=== PATIENT | male | born 1960 | race Caucasian/White ===

== ENCOUNTER 2019-03-29 13:08 | Inpatient (IN) | payer SELFPAY ==
[~2019-03-29 13:08] MED LIST: Iopamidol-370 76% 500 ML 1 ML ONE
--- NOTE | 2019-03-29 15:05 | CT ---
EXAM: CT Pelvis W Con PROVIDED CLINICAL HISTORY: Perineal abscess COMPARISON: None FINDINGS: There is reticulation of the subcutaneous adipose layer, subcutaneous gas and skin thickening involvi ng the left perineum and left inferior gluteal region. There is no evidence for an organized fluid collection to suggest abscess. The intrapelvic contents appear unremarkable. No evidence for regional lymph node enlargement. The os seous structures demonstrate no concerning lytic or blastic lesions. IMPRESSION: Left perineal and gluteal cellulitis.
[2019-03-29 15:54] LABS: Acetaminophen Less than 6.0 mcg/mL (10.0-30.0); Alcohol Less than 10 mg/dL (Less than 10); Salicylate Less than 8.0 mg/dL (15.0-30.0)
[2019-03-29] MEDS ORDERED: Acetaminophen 325 MG TAB PO PRN (15:59)
[2019-03-29] MEDS ORDERED: Ondansetron PF 4 MG/2 ML Vial IVP PRN (15:59)
[2019-03-29] MEDS ORDERED: HYDROcodone/Acetaminophen 5/325 mg Tablet PO PRN (15:59)
[2019-03-29] MEDS ORDERED: HYDROcodone/Acetaminophen 10/325 mg Tablet PO PRN (15:59)
[2019-03-29] MEDS ORDERED: Ondansetron ODT 4 MG TAB PO PRN (15:59)
[2019-03-29] MEDS ORDERED: Potassium Chloride 20 MEQ TAB PO SCH (16:00)
[2019-03-29] MEDS ORDERED: Potassium Chloride 20 MEQ TAB ONE (16:11)
[2019-03-29 16:33] LABS: Phosphorus 2.7 mg/dL (2.3-4.7)
[2019-03-29 17:06] LABS: Anion Gap 20 mmol/L (10-20); BUN (Urea Nitrogen) 6 mg/dL (8.4-25.7); Calc. Creatinine Clearance 0 mL/min (70-130); Calcium 7.4 mg/dL (7.8-10.44); Carbon Dioxide 17 mmol/L (22-29); Chloride 90 mmol/L (98-107); Estimated GFR-MDRD Greater than 90; Glucose 69 mg/dL (70-105); Potassium 3.7 mmol/L (3.5-5.1); Sodium 123 mmol/L (136-145)
--- NOTE | 2019-03-29 17:14 | HP ---
PRIMARY CARE PHYSICIAN: None. CHIEF COMPLAINT: Rectal nodule and drainage. HISTORY OF PRESENT ILLNESS: A 58-year-old male with chronic alcohol abuse, admitted on transfer from [facility] for evaluation and treatment of left perirectal abscess and drainage. The patient reportedly developed a perirectal discomfort about 2 weeks ago, which he thought was hemorrhoid, hence brought some anti-hemorrhoid medication and has been applying it, but in the last few days, he noticed some nodule with some drainage. He reportedly went to [facility] earlier today where he was found to have some induration with drainage and erythema on the left perianal area. The patient was treated with antibiotics and transferred over here for further evaluation and treatment. Evaluation also showed hyponatremia with sodium of 122, as well as hypokalemia. The patient denied mental status change, dizziness, chest pain, nausea, vomiting, abdominal pain, leg swelling, change in bowel habit, dysuria, hematuria, hematochezia, melena, hematemesis, headache, and focal weakness. He however admitted to hiccups which have been getting frequent in the last 1 week as well as frequent falls in the last 1 week. The patient at baseline has gait instability which is associated with falls, which reportedly has gotten worse in the last 1 week. The patient is a chronic alcoholic, drinking about two 6 packs every day, but reportedly slowed down in the last 1 to 2 weeks to one 6-pack every day with last drink being about 9 p.m. yesterday. He denied weight loss. PAST MEDICAL HISTORY: 1. Anemia, status post blood transfusion. 2. Hemorrhoids. PAST SURGICAL HISTORY: None. FAMILY HISTORY: Significant for diabetes in mother. SOCIAL HISTORY: The patient is a chronic alcoholic, drinking about 2 packs daily for more than 40 years. Denied smoking, but admitted to tobacco chewing. Denied recreational drug use. ALLERGIES: NO KNOWN DRUG ALLERGIES REPORTED. HOME MEDICATIONS: None. REVIEW OF SYSTEMS: 12-point review of systems performed was negative other than pertinent positives and negatives included in the History of Present Illness. PHYSICAL EXAMINATION: VITAL SIGNS: Temperature 98.5 pulse 82, respiratory rate 17, SpO2 100% on room air, and blood pressure is 125/86. GENERAL: Disheveled male in no distress. Afebrile. Anicteric. Acyanotic. HEENT: Normocephalic, atraumatic. Oral mucosa is moist. NECK: Supple with no JVD. CARDIOVASCULAR: Regular rhythm and rate with normal heart sounds 1 and 2. RESPIRATORY: Fair air entry bilaterally with no obvious crackle or rhonchi or use of accessory muscles. GI: Flat, soft, nontender, nondistended with normal bowel sounds. UROGENITAL: Left perianal nodule with some dark discoloration as well as induration, marked tenderness and erythema. Anal skin tag also noted. Scrotum and penis are unremarkable. EXTREMITIES: Grossly normal looking with no edema or erythema. Right knee and leg abrasions noted. Forearm bruises and ecchymosis at various stages of resolution also noted. SENIOR PROJECT MANAGER ENGINEERING: Conscious, alert, oriented x3 with appropriate mental status. Cranial nerves 2 through 12 are grossly intact. The patient moves all extremities. There is no overt tremor of the hands appreciated. DIAGNOSTIC DATA: CBC showed WBC count of 9.2, hemoglobin of 14.1, MCV of 96.0, and platelets of 184. Coagulation panel showed PT 14.3, INR 1.1, and PTT 28.6. CMP showed sodium 122, potassium 3.2, chloride 84, CO2 of 23, BUN 7, anion gap 18, creatinine 0.61, glucose 76, calcium 8.8, total bilirubin 2.2, AST 80, ALT 59, alkaline phosphatase 65, total protein 6.7, albumin 3.2, globulin 3.5. Ammonia is less than 12. Initial troponin is 0.010. BNP is 31.7. Chest x-ray showed normal-sized heart and lungs with no infiltrate or effusion. Old healed rib fractures bilaterally were noted. The lungs are mildly hyperexpanded, but there was no acute thoracic finding. CT scan of the pelvis with contrast showed reticulation of the subcutaneous adipose layer, subcutaneous gas, and skin thickening involving the left perineum and left inferior gluteal region. There is no evidence of an organized fluid collection to suggest abscess. This is thought to be consistent with left perineal and gluteal cellulitis. ASSESSMENT: 1. Left perianal and perineal abscess with cellulitis, concerning for early Skye gangrene. 2. Chronic alcohol abuse with imminent withdrawal symptoms. 3. Hyponatremia: Most likely due to poor solute intake and chronic alcohol abuse. 4. Hypokalemia: Due to poor oral intake. 5. Abnormal liver enzymes: Most likely due to alcohol liver disease. 6. 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 Wernicke-Korsakoff syndrome seems more likely. 7. Physical deconditioning with frequent falls. PLAN: 1. We will start the patient on broad-spectrum antibiotic therapy. 2. We will replete serum potassium with potassium chloride. 3. Nutritional rehabilitation will be commenced. 4. We will get urine osmolality as well as serum osmolality. We will also get urine electrolytes and urinalysis. We will also get serum phosphorus and magnesium and replete as needed. 5. We will consult General Surgery as well as Nephrology. 6. We will start alcohol withdrawal protocol. 7. Fall precaution will be commenced. 8. We will also consult PT and OT. 9. Code status, full code. Mother is the surrogate decision maker. Further treatment to follow depending on hospital course. Job ID: [id number]
[2019-03-29 17:51] LABS: Medtox Reader # READER 1
[2019-03-29 17:52] LABS: Amphetamine Not Detected (NotDetected); Barbiturates Screen Not Detected (NotDetected); Benzodiazepine Screen Not Detected (NotDetected); Cocaine Metabolite Screen Not Detected (NotDetected); Methadone Not Detected (NotDetected); Methamphetamine Not Detected (NotDetected); Opiate Screen Not Detected (NotDetected); Oxycodone Screen Not Detected (NotDetected); Phencyclidine (PCP) Not Detected (NotDetected); THC/Cannabinoid Screen Not Detected (NotDetected); Tricyclic Screen Not Detected (NotDetected)
[2019-03-29 17:53] LABS: Medtox Control Line Valid? VALID (VALID)
[2019-03-29 19:14] VITALS: BMI 21.4
[2019-03-29] MEDS: Nicotine 21 MG PATCH TD SCH (22:29)
[2019-03-29] MEDS: Piperacillin/Tazobactam 3.375 GM in Sodium Chloride 0.9% 100 ML IVPB SCH (22:30)
--- NOTE | 2019-03-29 23:16 | CON ---
DATE OF CONSULTATION: 03/29/2019 GENERAL SURGEON: Dr. eVlasquez. HISTORY OF PRESENT ILLNESS: The patient is a 58-year-old male who presented to the emergency department complaining of perirectal pain and swelling. He was admitted to the hospital due to left-sided perirectal abscess, hyponatremia, and hypokalemia. At the time my evaluation, the patient reported his perirectal tenderness started about 10 days ago. He denies fevers or chills. Reports he is still having regular bowel movements and voiding without difficulties. He is afebrile and hemodynamically stable at the time of my evaluation. He is not tachycardic. Surgery was asked to see the patient for possible surgical intervention. The patient denies output from the area. REVIEW OF SYSTEMS: All additional 10-point review of systems is negative except that indicated above. MEDICATIONS: None. SURGICAL HISTORY: None. SOCIAL HISTORY: The patient is a daily alcohol drinker for the past 30 years. He drinks about 1-2 six packs of beer a day. Denies drug use. He does chew tobacco and lives alone. MEDICATIONS: None. ALLERGIES: NO KNOWN DRUG ALLERGIES. PHYSICAL EXAMINATION: VITAL SIGNS: Temperature 98.9, pulse 85, respirations 18, oxygen saturation 96 % on room air, blood pressure 129/76. GENERAL: Well-appearing middle-aged male, lying in bed with no signs of acute distress. PULMONARY: Equal chest rise and fall. Clear breath sounds bilaterally. No signs of acute respiratory distress. CARDIAC: Regular rate and rhythm. No murmurs, gallops, or rubs. GI: Abdomen soft, nontender, and nondistended. EXTREMITIES: 2+ pulses in all extremities. Gross motor and sensation are intact. No significant swelling noted. NEURO: GCS is 15. Pupils equal, round, and reactive to light bilaterally. : The patient does have a perirectal abscess on the left that is open and draining. He does also have tenderness and swelling over the left gluteal cleft and perineum. There are no other signs of abscess. The patient reports the area is very tender. LABORATORY FINDINGS: White count 9.2, hemoglobin 14.1, hematocrit 41.1, platelets 184. Sodium 123, potassium 3.7, chloride 90, bicarb 17, BUN 6, creatinine 0.58, glucose 96, magnesium 1.7, phosphorus 2.7. Urine tox and plasma alcohol are negative. DIAGNOSTIC FINDINGS: CT of the pelvis demonstrates left perineal and gluteal cellulitis. ASSESSMENT: 1. Left-sided perirectal abscess with surrounding cellulitis and perineal cellulitis. 2. Hyponatremia, improving. 3. History of alcohol abuse. PLAN: The patient's abscess is currently draining. He is not septic appearing. There is no surgical indication at this time. We will continue to allow that area to drain and keep it clean. He will receive sitz baths b.i.d. as well as IV Zosyn. Medical management per Primary Team for electrolyte abnormalities. Surgery will re-evaluate the patient to determine further surgical indication over the next couple of days. If there is any change in the patient's condition or new concerns, please contact the Trauma Team for Dr. Velasquez. This patient was seen and examined by Dr. Velasquez and myself this evening. Job ID: [id number] [facility]
[2019-03-30 04:02] LABS: Bacteria/HPF None Seen HPF (None Seen); Bilirubin Negative (Negative); Blood, Urine Negative (Negative); Clarity Clear (Clear); Glucose, Urine (Dipstick) Normal (Negative); Leukocyte Negative Leu/uL (Negative); Nitrite Negative (Negative); Protein, Urine (Dipstick) Negative (Neg-Trace); RBC/HPF 0-3 HPF (0-3); Squamous Epithelial None Seen HPF (0-3); Urobilinogen 6 mg/dL (Less than 2); WBC/HPF None Seen HPF (0-3)
[2019-03-30 04:13] LABS: Urine Culture Reflex No No
[2019-03-30] MEDS: Piperacillin/Tazobactam 3.375 GM in Sodium Chloride 0.9% 100 ML IVPB SCH ×4 (04:28→21:27)
[2019-03-30 05:18] LABS: ALT (SGPT) 56 U/L (8-55); AST (SGOT) 78 U/L (5-34); Albumin 2.6 g/dL (3.5-5.0); Alkaline Phosphatase 63 U/L (40-110); Anion Gap 14 mmol/L (10-20); BUN (Urea Nitrogen) 6 mg/dL (8.4-25.7); Band 6 % (5-11); Bilirubin, Total 1.8 mg/dL (0.2-1.2); Calc. Creatinine Clearance 138 mL/min (70-130); Calcium 7.8 mg/dL (7.8-10.44); Carbon Dioxide 22 mmol/L (22-29); Chloride 92 mmol/L (98-107); Estimated GFR-MDRD Greater than 90; Globulin 2.9 g/dL (2.4-3.5); Glucose 76 mg/dL (70-105); Hemoglobin 12.8 g/dL (14.0-18.0); Lymphocytes 11 % (21-51); MDiff Complete? YES; Mean Corpuscular HGB CONC 34.2 g/dL (32.0-36.0); Mean Corpuscular Hemoglobin 33.3 pg (27.0-31.0); Mean Corpuscular Volume 97.3 fL (78.0-98.0); Mean Platelet Volume 7.3 fL (7.4-10.4); Monocytes 8 % (0-10); Neutrophil 75 % (42-75); Platelet Count 171 thou/uL (130-400); Potassium 3.4 mmol/L (3.5-5.1); Protein, Total 5.5 g/dL (6.0-8.3); RBC Distribution Width 11.2 % (11.5-14.5); Red Blood Cell (RBC) Count 3.84 mill/uL (4.70-6.10); Sodium 125 mmol/L (136-145); White Blood Cell (WBC) Count 6.7 thou/uL (4.8-10.8)
[2019-03-30] MEDS: Potassium Chloride 20 MEQ TAB PO SCH ×2 (08:58→13:27)
[2019-03-30] MEDS ORDERED: FLU VACC QS2019-20(6MOS UP)/PF 60 MCG/0.5 ML SYRINGE IM ONE (09:00)
[2019-03-30] MEDS: Sodium Chloride 0.9% 1,000 ML IV SCH ×2 (09:44→16:45)
--- NOTE | 2019-03-30 10:16 | PDOC.HOSPP ---
- Subjective Encounter Date: 03/30/19 Encounter Time: 12:00 Subjective: Pain to left of anus improving, no other complaints. No events overnight. - Objective Vital Signs & Weight: Vital Signs (12 hours) Temp Pulse Resp BP BP Pulse Ox 03/30/19 07:49 98.1 F 82 16 116/78 116/78 99 03/30/19 04:00 123/79 03/30/19 03:54 98.3 F 82 16 123/79 98 03/30/19 00:00 130/81 Weight Weight 149 lb 9.6 oz I&O: 03/29/19 03/30/19 03/31/19 06:59 06:59 06:59 Intake Total 800 Output Total 1600 Balance -800 Result Diagrams: 03/30/19 04:06 03/30/19 04:06 Hospitalist ROS - Review of Systems Constitutional: denies: fever, chills Respiratory: denies: cough, shortness of breath Cardiovascular: denies: chest pain, palpitations Gastrointestinal: denies: nausea, vomiting, abdominal pain - Medication Medications: Active Medications Generic Name Dose Route Start Last Admin Trade Name Freq PRN Reason Stop Dose Admin Piperacillin Sod/Tazobactam 100 mls @ 200 mls/hr 03/29/19 21:00 03/30/19 08: 58 Sod 3.375 gm/ Sodium Chloride IVPB 100 mls 0300,0900,1500,2100 HILDA Administration Sodium Chloride 1,000 mls @ 120 mls/hr 03/30/19 09:30 03/30/19 09:44 Normal Saline 0.9% IV 1,000 mls .Q8H20M HILDA Administration Nicotine 21 mg 03/29/19 21:00 03/29/19 22:29 Nicoderm Patch TD Not Given Q24HR HILDA Pantoprazole Sodium 40 mg 03/30/19 09:00 03/30/19 08:58 Protonix PO 40 mg DAILY HILDA Administration Potassium Chloride 40 meq 03/30/19 08:00 03/30/19 08:58 K-Dur PO 03/30/19 14:01 40 meq 0200,0800,1400,2000 HILDA Administration - Exam General Appearance: NAD Heart: RRR, no murmur, no gallops, no rubs Respiratory: CTAB, no wheezes, no rales, no ronchi Gastrointestinal: soft, non-tender, non-distended, normal bowel sounds Skin - other findings: induration and TTP to left of anus, no fluctuance, no drainage, minimal red Psychiatric: normal affect, normal behavior, A&O x 3 Hosp A/P (1) Perirectal cellulitis Code(s): K61.1 - RECTAL ABSCESS Status: Acute Plan: no surgical indication at this time per Dr. Velasquez, IV abx, Sitz baths (2) Alcoholism Code(s): F10.20 - ALCOHOL DEPENDENCE, UNCOMPLICATED Status: Chronic Plan: ASE protocol (3) Hyponatremia Code(s): E87.1 - HYPO-OSMOLALITY AND HYPONATREMIA Status: Acute Plan: due to alcoholism, slowly improving, Dr. Solitario following (4) Hypokalemia Code(s): E87.6 - HYPOKALEMIA Status: Acute Plan: replacing - Plan continue antibiotics on Zosyn, general surgery following, improving and if no surgery needed and continues to get better can likely switch to po abx and d/c home tomorrow
[2019-03-30] MEDS ORDERED: Diazepam 5 MG TAB PO PRN (10:20)
[2019-03-30] MEDS ORDERED: Diazepam 5 MG TAB PO SCH (10:30)
[2019-03-30] MEDS ORDERED: Thiamine HCl 200 MG/2 ML VIAL IM SCH (10:30)
--- NOTE | 2019-03-30 12:15 | CON ---
DATE OF CONSULTATION: SERVICE: Renal Medicine. HISTORY OF PRESENT ILLNESS: Mr. Couch is a 58-year-old white male, who presented to the emergency room with perirectal pain and swelling. He has been evaluated by surgery and he has a rectal abscess. We are being consulted for his hyponatremia, which is slowly improving. Please note, this patient has heavy alcohol intake. He drinks on a daily basis 6 pack beer or more. REVIEW OF SYSTEMS: No chest pain. No confusion. Positive for rectal pain. No nausea. No vomiting. Decreased hearing. No productive cough. No fever or chills. No hematochezia. No melena. No hematemesis. No gross hematuria. No dysuria. No urinary frequency. PAST MEDICAL HISTORY: Includes history of hemorrhoids. PAST SURGICAL HISTORY: He denies any surgeries. SOCIAL HISTORY: He lives in [place]. He is single, no children. 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 He drinks 1 to 2 six packs of beer per day for the last 30 years. He chews tobacco, but does not smoke. Education, high school. Sedentary lifestyle. No blood transfusion. No IV drug abuse. FAMILY HISTORY: No family history of ESRD. ALLERGIES: NONE. TRAUMA: None. IMMUNIZATIONS: Unknown. HOSPITALIZATIONS: Please see past medical history. PHYSICAL EXAMINATION: VITAL SIGNS: Blood pressure is 116/78, heart rate 82, respiratory rate 16, temperature 98.1, and pulse ox 99%. GENERAL: Awake, alert, comfortable, not in distress. SKIN: Adequate turgor. HEENT: He has pinkish conjunctivae. Anicteric sclerae. NECK: No neck mass. No carotid bruits. No JVD. CHEST: No deformities. LUNGS: Clear breath sounds. No wheezing. No crackles. HEART: Normal sinus rhythm. No murmur. No gallops. No rubs. ABDOMEN: Globular, soft, and nontender. No masses. EXTREMITIES: No edema. No deformities. MEDICATIONS: Medications of March 30, 2019, was reviewed. LABORATORY DATA: Laboratories of March 30, 2019; white count 6.7, hemoglobin 12.8. Sodium 123, potassium 3.7, chloride 90, carbon dioxide 17, BUN 6, creatinine 0.58, calcium 7.4, magnesium 1.7, phosphorus 2.7. Ammonia less than 12. Serum osmolality 255. Urinalysis, specific gravity 1.011. Urine sodium is less than 20. Urine osmolality 186. ASSESSMENT AND PLAN: 1. Hyponatremia - this most likely is alcohol-induced hyponatremia. I feel that the cessation of the alcohol will help improve his serum sodium. I would suggest we do a free water restriction with this patient. We can also consider an empiric volume repletion with this patient. Normal saline at 100 mL/h and repeat a basic metabolic panel to see if it will improve. 2. Rectal abscess. Currently, on IV antibiotics. Surgery is following. At the present time, I do not think we need hypertonic solution. Job ID: [id number]
[2019-03-30 16:08] LABS: Anion Gap 14 mmol/L (10-20); BUN (Urea Nitrogen) 6 mg/dL (8.4-25.7); Calc. Creatinine Clearance 143 mL/min (70-130); Calcium 7.7 mg/dL (7.8-10.44); Carbon Dioxide 21 mmol/L (22-29); Chloride 94 mmol/L (98-107); Estimated GFR-MDRD Greater than 90; Glucose 76 mg/dL (70-105); Potassium 3.8 mmol/L (3.5-5.1); Sodium 125 mmol/L (136-145)
[2019-03-30 20:54] LABS: Anion Gap 13 mmol/L (10-20); BUN (Urea Nitrogen) 7 mg/dL (8.4-25.7); Calc. Creatinine Clearance 143 mL/min (70-130); Calcium 7.6 mg/dL (7.8-10.44); Carbon Dioxide 20 mmol/L (22-29); Chloride 97 mmol/L (98-107); Estimated GFR-MDRD Greater than 90; Glucose 100 mg/dL (70-105); Potassium 3.9 mmol/L (3.5-5.1); Sodium 126 mmol/L (136-145)
[2019-03-30] MEDS: Nicotine 21 MG PATCH TD SCH (21:27)
--- NOTE | 2019-03-30 23:36 | PRG ---
DATE OF SERVICE: 03/30/2019 This is late litigation dictating a progress note for patient Victor Manuel Couch the date is March 30, 2019. SUBJECTIVE: The patient was seen this evening, lying in bed with no signs of acute distress. He reported he is tolerating his diet, although b.i.d. sitz baths were ordered. They have not been completed. Nursing reports patient is refusing. I did discuss this with him and he agreed to start a sitz bath tonight. OBJECTIVE: VITAL SIGNS: Temperature 98.2, pulse 82, respirations 20, oxygen saturation 99% on room air, blood pressure 136/86. GENERAL: Well-appearing elderly male, middle-aged male, lying in bed with no signs of acute distress pulmonary equal chest rise and fall. No signs of acute respiratory distress. ASSESSMENT: Left perirectal abscesses and perineal cellulitis. 1. Hyponatremia. 2. History of alcohol abuse. 3. The patient initially was refusing sitz baths b.i.d. I did discuss with him the importance of this and he agreed to start them this evening. Continue IV antibiotics. Surgery will re-evaluate the wound tomorrow during day shift in. Job ID: [id number]
[2019-03-31] MEDS: Sodium Chloride 0.9% 1,000 ML IV SCH ×5 (01:01→20:15)
[2019-03-31] MEDS: Piperacillin/Tazobactam 3.375 GM in Sodium Chloride 0.9% 100 ML IVPB SCH ×4 (03:29→20:13)
[2019-03-31] MEDS ORDERED: Diazepam 5 MG TAB PO PRN (04:00)
[2019-03-31 05:41] LABS: Anion Gap 11 mmol/L (10-20); BUN (Urea Nitrogen) 5 mg/dL (8.4-25.7); Calc. Creatinine Clearance 141 mL/min (70-130); Calcium 7.5 mg/dL (7.8-10.44); Carbon Dioxide 21 mmol/L (22-29); Chloride 98 mmol/L (98-107); Estimated GFR-MDRD Greater than 90; Glucose 87 mg/dL (70-105); Potassium 4.4 mmol/L (3.5-5.1); Sodium 126 mmol/L (136-145)
[2019-03-31] MEDS: Thiamine 100 MG TAB PO SCH (08:35)
[2019-03-31] MEDS: Multivitamin W/ Minerals 1 TAB PO SCH (08:35)
[2019-03-31] MEDS: Magnesium Oxide 400 MG TAB PO SCH (08:35)
[2019-03-31] MEDS: Folic Acid 1 MG TAB PO SCH (08:35)
--- NOTE | 2019-03-31 10:04 | PDOC.HOSPP ---
- Subjective Encounter Date: 03/31/19 Encounter Time: 12:30 Subjective: Patient reports some unsteadiness on his feet and falls the past week since got sick. Pain in rectal area resolved today. Mild brown drainage from the sore. No fever. - Objective Vital Signs & Weight: Vital Signs (12 hours) Temp Pulse Resp BP BP BP Pulse Ox 03/31/19 08:00 97.8 F 82 18 134/83 99 03/31/19 05:58 129/86 03/31/19 05:06 98.8 F 80 20 129/86 100 03/30/19 23:49 98.8 F 79 20 130/82 99 03/30/19 23:39 130/82 Weight Weight 149 lb 9.6 oz I&O: 03/30/19 03/31/19 04/01/19 06:59 06:59 06:59 Intake Total 800 1880 Output Total 1600 1450 Balance -800 430 Result Diagrams: 03/30/19 04:06 03/31/19 04:56 Hospitalist ROS - Review of Systems Constitutional: denies: fever, chills Respiratory: denies: cough, shortness of breath Cardiovascular: denies: chest pain, palpitations Gastrointestinal: denies: nausea, vomiting, abdominal pain Skin: reports: lesions Neurological: reports: weakness - Medication Medications: Active Medications Generic Name Dose Route Start Last Admin Trade Name Odette PRN Reason Stop Dose Admin Folic Acid 1 mg 03/31/19 09:00 03/31/19 08:35 Folvite PO 1 mg DAILY HILDA Administration Piperacillin Sod/Tazobactam 100 mls @ 200 mls/hr 03/29/19 21:00 03/31/19 08: 54 Sod 3.375 gm/ Sodium Chloride IVPB 100 mls 0300,0900,1500,2100 HILDA Administration Sodium Chloride 1,000 mls @ 120 mls/hr 03/30/19 09:30 03/31/19 09:57 Normal Saline 0.9% IV Not Given .Q8H20M HILDA Iron/Minerals/Multivitamins 1 tab 03/31/19 09:00 03/31/19 08:35 Theragran M PO 1 tab DAILY HILDA Administration Magnesium Oxide 400 mg 03/31/19 09:00 03/31/19 08:35 Magnesium Oxide PO 400 mg DAILY HILDA Administration Nicotine 21 mg 03/29/19 21:00 03/30/19 21:27 Nicoderm Patch TD Not Given Q24HR HILDA Pantoprazole Sodium 40 mg 03/30/19 09:00 03/31/19 08:35 Protonix PO 40 mg DAILY HILDA Administration Thiamine HCl 100 mg 03/31/19 09:00 03/31/19 08:35 Thiamine PO 100 mg DAILY HILDA Administration - Exam General Appearance: NAD, awake alert Eye: anicteric sclera ENT: moist mucosa Heart: RRR, no murmur, no gallops, no rubs Respiratory: CTAB, no wheezes, no rales, no ronchi Gastrointestinal: soft, non-tender, non-distended Neurological - other findings: no shaking/tremor Psychiatric: normal affect, normal behavior, A&O x 3 Hosp A/P (1) Perirectal cellulitis Code(s): K61.1 - RECTAL ABSCESS Status: Acute (2) Alcoholism Code(s): F10.20 - ALCOHOL DEPENDENCE, UNCOMPLICATED Status: Chronic (3) Hyponatremia Code(s): E87.1 - HYPO-OSMOLALITY AND HYPONATREMIA Status: Acute (4) Hypokalemia Code(s): E87.6 - HYPOKALEMIA Status: Resolved - Plan continue antibiotics, PT/OT, psychosocial rehabilitation counselor on Zosyn, general surgery following, improving, when ok with surgery will switch to po antibiotics hyponatremia improving slowly with fluids and cessation of EtOH no withdrawl symptoms Will need rehab after discharge
--- NOTE | 2019-03-31 12:03 | PRG ---
DATE OF SERVICE: 03/31/2019 SUBJECTIVE: Mr. Couch is a 58-year-old white male, who was admitted for a rectal abscess and seen by the renal service for his hyponatremia. We feel that the hyponatremia was related to his alcohol intake. He also most likely has had degree of volume depletion. For that reason, he was started on normal saline. Serum sodium is noted to be slowly improving from a low of 123 to a most recent value of 126. Continue free water restriction with this patient. The patient is voicing that he wants to go home. He voices no complaints of chest pain or shortness of breath. OBJECTIVE: VITAL SIGNS: Blood pressure 134/83, heart rate 82, respiratory rate 18, temperature 97.8, and pulse ox 99%. GENERAL: Noted to be awake, alert, comfortable, not in overt distress. SKIN: Adequate turgor. HEENT: He has pinkish conjunctivae. Anicteric sclerae. NECK: No neck mass. No carotid bruits. No JVD. CHEST: No deformities. LUNGS: Clear breath sounds. HEART: Normal sinus rhythm. No murmur. No gallops. No rubs. ABDOMEN: Globular, soft, and nontender. No masses. EXTREMITIES: No edema. No deformities. MEDICATIONS: Medications of 03/31/2019 were reviewed. LABORATORY DATA: On 03/31/2019: Sodium 126, potassium 4.4, chloride 98, carbon dioxide 21, BUN 5, creatinine 0.55, and calcium 7.5. ASSESSMENT AND PLAN: 1. Hyponatremia, serum sodium is slowly improving at 126 from 123. If no significant improvement by a.m., consider hypotonic saline. However, the patient may not be in the hospital since he is wanting to go home. 2. Rectal abscess, on IV antibiotics. He could be changed to p.o. antibiotics if he decides to go home. Continue free water restriction. 3. Recheck basic metabolic in a.m. Job ID: [id number]
--- NOTE | 2019-03-31 16:40 | PRG ---
DATE OF SERVICE: 03/31/2019 SUBJECTIVE: The patient remains on the medical floor. The patient was seen in consultation for gluteal cellulitis. The patient has begun doing sitz bath. He has been on IV antibiotics for approximately 36 hours now. He is stating that he does not have any discomfort. He is able to have a bowel movement and he is able to sit more comfortably. The patient is doing sitz baths at this time. He is tolerating a diet and his pain is controlled. OBJECTIVE: VITAL SIGNS: Temperature is 97.8, heart rate 82, blood pressure 134/83, respirations 18, and oxygen saturation is 99% on room air. GENERAL: The patient is just returned to bed. He went to the bathroom and getting a sitz bath. His left gluteal area has markedly decreased redness when compared to his initial wound photos, there was no fluctuance or discharge and very minimal tenderness to palpation. ASSESSMENT: 1. Left perineal/gluteal cellulitis. 2. Hyponatremia, being treated by primary team. 3. History of alcohol abuse. PLAN: Plan will be to continue encouraging sitz baths at least twice a day and daily showers. This was again discussed in detail with the patient. The patient is tolerating a diet. We would recommend transitioning him to oral antibiotics and may add a stool softener if needed. We will re-evaluate the patient tomorrow, but at this time there is no surgical intervention needed. Job ID: [id number]
[2019-03-31] MEDS: Nicotine 21 MG PATCH TD SCH (20:16)
[2019-04-01] MEDS: Sodium Chloride 0.9% 1,000 ML IV SCH (05:29)
[2019-04-01 06:25] LABS: #Eosinphils 0.1 thou/uL (0.0-0.7); #Lymphocytes 0.8 thou/uL (1.20-3.40); #Monocytes 0.5 thou/uL (0.11-0.59); #Neutrophils 2.8 thou/uL (1.40-6.50); %Basophils 0.4 % (0.0-1.0); %Eosinophils 3.1 % (0.0-10.0); %Lymphocytes 19.8 % (21.0-51.0); %Monocytes 10.6 % (0.0-10.0); Hemoglobin 12.5 g/dL (14.0-18.0); Mean Corpuscular HGB CONC 34.5 g/dL (32.0-36.0); Mean Corpuscular Volume 98.3 fL (78.0-98.0); Mean Platelet Volume 6.8 fL (7.4-10.4); Platelet Count 171 thou/uL (130-400); RBC Distribution Width 11.3 % (11.5-14.5); Red Blood Cell (RBC) Count 3.69 mill/uL (4.70-6.10); White Blood Cell (WBC) Count 4.2 thou/uL (4.8-10.8)
[2019-04-01 06:45] LABS: Anion Gap 9 mmol/L (10-20); BUN (Urea Nitrogen) Less than 4 mg/dL (8.4-25.7); Calc. Creatinine Clearance 136 mL/min (70-130); Calcium 7.6 mg/dL (7.8-10.44); Carbon Dioxide 25 mmol/L (22-29); Chloride 99 mmol/L (98-107); Estimated GFR-MDRD Greater than 90; Glucose 93 mg/dL (70-105); Potassium 3.9 mmol/L (3.5-5.1); Sodium 129 mmol/L (136-145)
[2019-04-01] MEDS: Amoxicillin/Potassium Clav 875 MG TAB PO SCH ×2 (08:18→19:29)
[2019-04-01] MEDS: Folic Acid 1 MG TAB PO SCH (08:18)
[2019-04-01] MEDS: Multivitamin W/ Minerals 1 TAB PO SCH (08:18)
[2019-04-01] MEDS: Magnesium Oxide 400 MG TAB PO SCH (08:18)
[2019-04-01] MEDS: Thiamine 100 MG TAB PO SCH (08:18)
--- NOTE | 2019-04-01 09:48 | PRG ---
DATE OF SERVICE: 04/01/2019 SUBJECTIVE: Mr. Couch is a 58-year-old white male, who was admitted for rectal abscess. The patient currently on antibiotics. We saw him for his hyponatremia, which was related to his alcohol intake. He was also volume depleted. Over time, the serum sodium is slowly improving. No other complaints today. No chest pain. Please note, this patient has decreased hearing. OBJECTIVE: VITAL SIGNS: Blood pressure 137/90, heart rate 73, respiratory rate 18, temperature 98, and pulse ox 99%. GENERAL: Noted to be awake, alert, and comfortable, not in distress. SKIN: Adequate turgor. HEENT: He has pinkish conjunctivae. Anicteric sclerae. No neck mass. No carotid bruits. No JVD. CHEST: No deformities. LUNGS: Clear breath sounds. HEART: Normal sinus rhythm. No murmurs, gallops, or rubs. ABDOMEN: Globular, soft, and nontender. No masses. EXTREMITIES: No edema. No deformities. MEDICATIONS: April 01, 2019, was reviewed. LABORATORY DATA: Laboratories of April 01, 2019; sodium 129, potassium 3.9, chloride 99, carbon dioxide 25, BUN 4, creatinine 0.57, and calcium 7.6. White count 4.2 and hemoglobin 12.5. ASSESSMENT AND PLAN: 1. Acute hyponatremia-slowly improving with volume repletion and free water restriction. This has also been aggravated by his significant alcohol intake. Continue free water restriction. Serum sodium now is 129, which is much improved. Agree with current management. 2. Rectal abscess on p.o. antibiotics, clinically much improved. The patient tells me he will be discharged today. Job ID: [id number]
[2019-04-01 16:22] VITALS: BP 133/84; TEMP 98.1
--- NOTE | 2019-04-01 16:32 | DIS ---
DATE OF ADMISSION: 03/29/2019 DATE OF DISCHARGE: 04/01/2019 DISCHARGE DIAGNOSES: 1. Left-sided perirectal abscess with surrounding cellulitis and perineal cellulitis, resolving without intervention. 2. Acute hyponatremia, likely secondary to prerenal azotemia, improving. 3. Recurrent falls of unspecified etiology. 4. Generalized weakness and deconditioning, improving. 5. History of alcohol use and possible abuse. DISCHARGE MEDICATIONS: Augmentin 875/125 one tablet p.o. b.i.d. x7 days, #14 tablets with zero refills. DISCHARGE ACTIVITY: Up ad-antonieta as tolerated with assistive devices. DISCHARGE DIET: Regular diet. FOLLOWUP INSTRUCTIONS: Prescriptions given for oral Augmentin 1 week course. GoodRx prescription given. Maintain local wound care to affected area along with sitz baths. Monitor for worsening of symptoms. Maintain fall precautions. Seek medical attention if symptoms does not improve. CONSULTANTS DURING HOSPITALIZATION COURSE: 1. Nephrology. 2. General surgeon. BRIEF HOSPITALIZATION COURSE: This is a 58-year-old male with past medical history of alcohol use, who presented to [facility] ER for several-day history of left-sided perirectal pain and discomfort, which initially attributed secondary to hemorrhoids with no relief after using antihemorrhoidal medications. In the ER, he was noted to have evidence of perirectal abscess left-sided with spontaneous drainage along with perianal and perineal cellulitis. He is admitted for further inpatient evaluation. Initial chemistry suggested hyponatremia suspected secondary to prerenal state and secondary to ongoing history of chronic alcohol use. Clinically, the patient was not volume overloaded. He was continued on IV antibiotics with Zosyn. Would continue monitoring by general surgeon. Affected area continued to spontaneously drain with significant improvement in the patient's symptoms. Electrolyte derangements also improved. The patient clinically felt improved to participate with physical therapy, was noted to have some gait imbalance. His antimicrobials were transitioned to oral Augmentin. The patient felt well and insisted to go home. He was advised fall precautions and states that he has multiple DME at home including a quad cane, safety rails on the stair cases, and a walker. He will be provided prescription for one week of oral Augmentin 825/125 one tablet twice daily for one week course along with a GoodRx prescription coupon. He has been advised to continue sitz baths as well as maintain local wound care to affected area. He is to monitor for recurrence or worsening of symptoms. He should liberalize his oral intake and be cognizant of his water intake. He verbalized understanding all discharge instructions. I have seen, evaluated, and discharged the patient today with a [id number] encounter. He will be discharged home in stable condition. PHYSICAL EXAMINATION: VITAL SIGNS: On date of discharge; temperature 97.2, pulse 97 and sinus rhythm, blood pressure 148/94, oxygen 99% on room air, and respirations 18 and unlabored. GENERAL APPEARANCE: Middle-aged thin male, who is awake, alert, oriented, coherent, lucid, not in any obvious distress and hard of hearing. HEENT: Normocephalic and atraumatic. No facial asymmetry. Mucous membranes moist. NECK: Supple. CARDIOVASCULAR SYSTEM: S1 and S2. Regular rate and rhythm. No harsh murmurs. No reproducible chest wall tenderness to palpation. LUNGS: Bilateral equal air entry. Clear to auscultation. Nonlabored respirations. No wheezing or rales. ABDOMEN: Soft, nontender, and nondistended. EXTREMITIES: No lower extremity edema. No cyanosis or deformities noted. SKIN: Warm to touch without rash or pallor. Scattered abrasions throughout the body. Penis and buttocks evaluation, there is evidence of a left perirectal region with old blood on the underwear and there is no current drainage noted and no surrounding tenderness in the affected area. TIME SPENT: Discharge time, 35 minutes. Job ID: [id number]
[2019-04-01] MEDS: Nicotine 21 MG PATCH TD SCH (19:31)
== END 2019-04-01 19:35 | disposition home or self-care (01) | DRG 394 ==
LOC: ERS 13:08 → 2NO 18:51 → T4-B 03-30 14:44
PROVIDERS: ADMIT Internal Medicine Nephrology; ATTEND Internal Medicine Nephrology
DX: K61.1 Rectal abscess (principal); L03.315 Cellulitis of perineum; E87.1 Hypo-osmolality and hyponatremia; K61.2 Anorectal abscess; R79.89 Other specified abnormal findings of blood chemistry; K64.9 Unspecified hemorrhoids; R26.9 Unspecified abnormalities of gait and mobility; F10.10 Alcohol abuse, uncomplicated; R53.1 Weakness; E87.6 Hypokalemia; R29.6 Repeated falls
CPT/HCPCS: 36415; 72193; 80048; 80053; 80306; 80307; 81001; 82140; 83735; 83930; 83935; 84100; 84300; 85007; 85025; 85027; J2543; J3411; J3475; J3490; Q9967